=== PATIENT | male | born 1990 | race Caucasian/White ===

== ENCOUNTER 2018-03-16 09:29 | Emergency (ER) | payer MEDICAID, SELFPAY ==
[~2018-03-16] VITALS: Ht 188 cm; Wt 68.2 kg
[2018-03-16] MEDS ORDERED: AMOX875T PO (09:41)
[2018-03-16 10:05] LABS: BASO # 0.1 10^3/uL (0.0-0.2); EOS # 0.2 10^3/uL (0.0-0.50); HEMATOCRIT 44.8 % (42.0-52.0); HEMOGLOBIN 14.9 g/dl (13.5-17.5); LYMPH # 2.5 10^3/uL (1.5-6.5); LYMPH % 39.7 % (24.0-44.0); MEAN CORPUSCULAR HEMOGLOBIN 29.6 pg (27.0-33.0); MEAN CORPUSCULAR HGB CONC 33.3 g/dl (32.0-36.5); MEAN CORPUSCULAR VOLUME 88.9 fl (80.0-96.0); MONO # 0.5 10^3/uL (0.0-0.8); MONO % 7.4 % (0.0-5.0); NEUTROPHILS % 48.7 % (36.0-66.0); PLATELET COUNT, AUTOMATED 208 10^3/uL (150-450); RED BLOOD COUNT 5.04 10^6/uL (4.30-6.10); WHITE BLOOD COUNT 6.2 10^3/uL (4.0-10.0)
[2018-03-16 10:33] LABS: ALBUMIN 4.2 GM/DL (3.2-5.2); ALT/SGPT 26 U/L (12-78); BILIRUBIN,TOTAL 0.5 MG/DL (0.2-1.0); BLOOD UREA NITROGEN 13 MG/DL (7-18); CALCIUM LEVEL 8.8 MG/DL (8.5-10.1); CARBON DIOXIDE LEVEL 31 MEQ/L (21-32); CHLORIDE LEVEL 106 MEQ/L (98-107); CREATININE FOR GFR 0.84 MG/DL (0.70-1.30); GLOMERULAR FILTRATION RATE > 60.0 (>60); GLUCOSE, FASTING 94 MG/DL (70-100); POTASSIUM SERUM 3.9 MEQ/L (3.5-5.1); SODIUM LEVEL 141 MEQ/L (136-145); TOTAL PROTEIN 7.4 GM/DL (6.4-8.2)
[2018-03-16 10:45] VITALS: BP 130/80
--- NOTE | 2018-03-16 13:17 | ECGEPIP ---
Stationary ECG Study [facility] - ED Test Date: 2018-03-16 Pat Name: NGUYỄN FINE Department: Room: - Gender: M Flumer: REGGIE : 1990 Requested By: Nida Hunter Order Number: [id number] Reading MD: Nida Hunter Measurements Intervals [place] Rate: 54 P: 73 SC: 169 QRS: 76 QRSD: 98 T: 55 QT: 387 QTc: 368 Interpretive Statements SINUS BRADYCARDIA NO PRIOR FOR COMPARISON Electronically Signed On 03-16-2018 13:16:32 EST by Nida Hunter
== END 2018-03-16 11:03 | disposition home or self-care (01) ==
LOC: M ED 09:29
DX: L51.9 Erythema multiforme, unspecified (principal); R00.1 Bradycardia, unspecified; Z88.0 Allergy status to penicillin

== ENCOUNTER → 2018-08-27 | Outpatient (CLI) | payer SELFPAY ==
[~2018-08-27] MED LIST: AMOX875T PO
== END ==
LOC: M OUTALCOH 08:08
PROVIDERS: ATTEND Psychiatry & Neurology Psychiatry
DX: Z03.89 Encounter for observation for other suspected diseases and conditions ruled out (principal)

== ENCOUNTER 2018-09-04 07:56 | Outpatient (RCR) | payer SELFPAY | END 2018-09-15 | LOC: M OUTALCOH 07:56 | PROVIDERS: ATTEND Psychiatry & Neurology Psychiatry | DX: Z03.89 Encounter for observation for other suspected diseases and conditions ruled out (principal); F17.200 Nicotine dependence, unspecified, uncomplicated ==

== ENCOUNTER → 2020-04-13 | Outpatient (REF) | payer SELFPAY | LOC: M WUC 12:56 | PROVIDERS: ATTEND Physician Assistant | DX: J02.9 Acute pharyngitis, unspecified (principal) ==

== ENCOUNTER → 2021-04-15 | Outpatient (REF) | LOC: M LABSMTC 09:24 | PROVIDERS: ATTEND Pediatrics | DX: Z11.52 Encounter for screening for COVID-19 (principal) ==

== ENCOUNTER → 2023-01-01 | Outpatient (CLI) | payer SELFPAY | LOC: M OUTALCOH 07:37 | PROVIDERS: ATTEND Psychiatry & Neurology Psychiatry | DX: Z03.89 Encounter for observation for other suspected diseases and conditions ruled out (principal) ==

== ENCOUNTER → 2023-01-16 | Outpatient (RCR) | payer SELFPAY | LOC: M OUTALCOH 01-09 12:42 | PROVIDERS: ATTEND Psychiatry & Neurology Psychiatry | DX: F10.10 Alcohol abuse, uncomplicated (principal); F12.10 Cannabis abuse, uncomplicated; F17.200 Nicotine dependence, unspecified, uncomplicated ==

== ENCOUNTER 2023-02-13 16:00 | Outpatient (RCR) | payer SELFPAY | END 2023-02-15 | LOC: M OUTALCOH 16:00 | PROVIDERS: ATTEND Psychiatry & Neurology Psychiatry | DX: F10.10 Alcohol abuse, uncomplicated (principal); F12.10 Cannabis abuse, uncomplicated; F17.200 Nicotine dependence, unspecified, uncomplicated ==

== ENCOUNTER 2023-02-27 16:00 | Outpatient (RCR) | payer SELFPAY | END 2023-03-18 | LOC: M OUTALCOH 16:00 | PROVIDERS: ATTEND Psychiatry & Neurology Psychiatry | DX: F17.200 Nicotine dependence, unspecified, uncomplicated (principal); F10.10 Alcohol abuse, uncomplicated; F12.10 Cannabis abuse, uncomplicated ==

== ENCOUNTER 2023-03-27 09:37 | Outpatient (RCR) | payer SELFPAY | END 2023-04-18 | LOC: M OUTALCOH 09:37 | PROVIDERS: ATTEND Psychiatry & Neurology Psychiatry | DX: F10.10 Alcohol abuse, uncomplicated (principal); F12.10 Cannabis abuse, uncomplicated; F17.200 Nicotine dependence, unspecified, uncomplicated ==

== ENCOUNTER 2024-11-15 19:01 | Emergency (ER) | payer OTHER ==
[~2024-11-15] VITALS: Ht 190.5 cm; Wt 68.4 kg
[2024-11-15] MEDS ORDERED: CLIN-250 (19:05)
[2024-11-15] MEDS ORDERED: AMOX875T2 PO (19:58)
[2024-11-15 20:09] VITALS: BP 122/75; TEMP 98.5; O2SAT 100
[2024-11-15] MEDS: AUGMENTIN 875 MG TAB PO ONE (20:17)
== END 2024-11-15 20:18 | disposition home or self-care (01) ==
LOC: M ED 19:01
DX: S81.831A Puncture wound without foreign body, right lower leg, initial encounter (principal); S61.432A Puncture wound without foreign body of left hand, initial encounter; W54.0XXA Bitten by dog, initial encounter; Y92.009 Unspecified place in unspecified non-institutional (private) residence as the place of occurrence of the external cause; Y93.89 Activity, other specified; Y99.9 Unspecified external cause status; Z79.2 Long term (current) use of antibiotics

== ENCOUNTER → 2025-01-27 | Outpatient (REF) | payer OTHER ==
[~2025-01-27] MED LIST changes: +AMOX875T2 PO; +CLIN-250
[2025-01-27 15:09] LABS: ALT/SGPT 173 U/L (7.0-40); AST/SGOT 184 U/L (<34); CALCIUM LEVEL 9.4 MG/DL (8.5-10.1); CARBON DIOXIDE LEVEL 30 MMOL/L (20-31); CHLORIDE LEVEL 103 MMOL/L (98-107); CHOLESTEROL LEVEL 148 MG/DL (<200); CHOLESTEROL RISK RATIO 2.77 (<5); CREATININE FOR GFR 0.83 MG/DL (0.70-1.30); GLOMERULAR FILTRATION RATE > 90.0 (>60); LDL CHOLESTEROL 79.3 MG/DL (<100); NON-HDL-C 94.7 MG/DL; POTASSIUM SERUM 4.6 MMOL/L (3.5-5.1); SODIUM LEVEL 141 MMOL/L (136-145); TRIGLYCERIDES LEVEL 77 MG/DL (<150)
== END ==
LOC: M LAB REF 14:06
PROVIDERS: ATTEND Family Medicine Addiction Medicine
DX: Z00.01 Encounter for general adult medical examination with abnormal findings (principal)